=== PATIENT | female | born 1950 | race Caucasian/White ===

== ENCOUNTER 2016-08-12 07:00 | Day surgery (SDC) | payer MEDICAID ==
[~2016-08-12 07:00] MED LIST: Lactated Ringers 1,000 ML IV SCH
[2016-08-12] MEDS ORDERED: Midazolam 1 MG/ML 2 ML SDV ONE (08:30)
[2016-08-12] MEDS ORDERED: fentaNYL 100 MCG/2 ML SDV ONE (08:30)
[2016-08-12] MEDS ORDERED: Propofol 200 MG/20 ML SDV ONE (08:30)
[2016-08-12 10:16] VITALS: BP 130/83
--- NOTE | 2016-08-13 07:37 | OR ---
DATE OF PROCEDURE: 08/12/2016 PREOPERATIVE DIAGNOSIS: History of liver and breast cancer. POSTOPERATIVE DIAGNOSES: Diverticulosis, small colon polyp 55 cm from the anal verge, history of liver and breast cancer. PROCEDURE: Colonoscopy to the cecum with biopsy resection of small colon polyp , 55 cm from anal verge. ANESTHESIA: IV anesthesia with monitored anesthesia care. INDICATION: This 66-year-old white female was referred for a colonoscopy. She is not sure when her last colonoscopic exam was done. We see in 2011 that she was scheduled to have a colonoscopy in 2017. She has a history of breast and liver cancer. I counseled her for the procedure including risks and alternatives, and she gave her informed consent to proceed. DESCRIPTION OF PROCEDURE: The patient was placed in the left lateral decubitus position. IV anesthesia was administered by the Anesthesia Service. Time-out was held. A rectal exam was performed, which was unremarkable. The flexible video Olympus colonoscope was introduced through her anus, up her rectum, and out her colon all way to the cecum. En route, in the left and sigmoid colon areas, we saw very few scattered diverticula. There was no bleeding or inflammation associated with them. Once the cecum was reached, the scope was slowly withdrawn examining the mucosa throughout. No additional mucosal abnormalities were noted until we reached 55 cm from the anal verge. Here, a small polyp was seen which was removed with a single bite of the biopsy forceps. The scope was brought back further. In the rectum, it was retroflexed. The distal rectum appeared unremarkable. The scope was straightened and removed. She tolerated the procedure well. Kev Breaux MD /[id number] RADHA
== END 2016-08-12 10:35 | disposition home or self-care (01) ==
LOC: JP.SDS 07:00
PROVIDERS: ATTEND Surgery
DX: Z12.11 Encounter for screening for malignant neoplasm of colon (principal); D12.6 Benign neoplasm of colon, unspecified; K57.30 Diverticulosis of large intestine without perforation or abscess without bleeding; Z91.041 Radiographic dye allergy status; F17.210 Nicotine dependence, cigarettes, uncomplicated
CPT/HCPCS: 45380; J2250; J2704; J3010; J7120; 88305

== ENCOUNTER 2017-01-08 10:58 | Inpatient (IN) | payer MEDICAID ==
--- NOTE | 2017-01-08 13:26 | CR ---
Portable chest The patient is status post right thoracentesis. There is a moderate size pneumothorax on the right. T he pneumothorax is best visualized in the lower hemithorax. There is a small right effusion. The left lung is unremarkable. There is no shift of midline. Impression: 1. Status post thoracentesis complicated by a right pneumothorax. Healthcare provider notified at time of dictation.
[2017-01-08] MEDS ORDERED: Lactated Ringers 1,000 ML IV SCH ×2 (13:29→13:46)
[2017-01-08] MEDS ORDERED: Bupivacaine 0.5%/EPINEPHrine 1:200,000 50 ML MDV ONE (13:30)
[2017-01-08] MEDS ORDERED: Ondansetron 4 MG Tab.DIS PO PRN (13:40)
[2017-01-08] MEDS ORDERED: fentaNYL 100 MCG/2 ML SDV ONE (13:46)
[2017-01-08] MEDS ORDERED: Propofol 200 MG/20 ML SDV ONE (13:46)
[2017-01-08] MEDS ORDERED: Midazolam 1 MG/ML 2 ML SDV ONE (13:47)
--- NOTE | 2017-01-08 13:50 | PCM.HP ---
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 She underwent a right thoracentesis removing 1,700 ml's of pleural fluid. This resulted in a pneumothorax. She is admitted for chest tube placement and care. Onset of Symptoms: Reports: Today Right Upper Abdomen Pain Score (Numeric/FACES): 7 - Related Data Allergies/Adverse Reactions: Allergies Allergy/AdvReac Type Severity Reaction Status Date / Time Iodinated Contrast- Oral and Allergy Hives Verified 01/08/17 11:03 IV Dye [Iodinated Contrast Media - IV Dye] Home Medications: Home Meds Aspirin 81 mg PO DAILY 10/07/14 [History] Black Cohosh 40 mg PO DAILY 08/10/16 [History] Ibuprofen [Advil] 200 mg PO Q6H PRN 08/10/16 [History] Melatonin 3 mg PO BEDTIME 08/10/16 [History] Multivitamin with Minerals [Multiple Vitamin] 1 tab PO DAILY 08/10/16 [History] Naphazoline HCl/Glycerin [Redness Relief Eye Drops] 1 - 2 drop EYEBOTH DAILY 02/16 [History] [place]-3 Fatty Acids/Fish Oil [Fish Oil 1,200 mg Softgel] 1 each PO DAILY [History] diphenhydrAMINE [Benadryl] 50 mg PO ASDIRECTED 01/01/17 [History] Past Medical History HEENT History: Reports: Impaired Vision Gastrointestinal History: Reports: Chronic Diarrhea Genitourinary History: Reports: None [employer] History: Reports: Musculoskeletal History: Reports: Back Pain, Chronic, Osteoarthritis Neurological History: Reports: Concussion, Head Trauma Oncologic (Cancer) History: Reports: Breast, Liver - Infectious Disease History Infectious Disease History: Reports: Chicken Pox, Measles, Mumps - Past Surgical History Female Surgical History: Reports: Breast Biopsy, Tubal Ligation Neurological Surgical History: Reports: Lumbar Spine Oncologic Surgical History: Reports: Biopsy of Breast, Lumpectomy Social & Family History - Family History Family Medical History: Noncontributory - Tobacco Use Smoking Status *Q: Current Every Day Smoker Years of Tobacco use: 44 Packs/Tins Daily: 0.5 Used Tobacco, but Quit: No Second Hand Smoke Exposure: No - Caffeine Use Caffeine Use: Reports: Coffee - Alcohol Use Days Per Week of Alcohol Use: 3 Number of Drinks Per Day: 1 Total Drinks Per Week: 3 - Recreational Drug Use Recreational Drug Use: No H&P Review of Systems - Review of Systems: Review Of Systems: See Below HEENT: Reports: No Symptoms Pulmonary: Reports: Shortness of Breath Cardiovascular: Reports: No Symptoms Gastrointestinal: Reports: No Symptoms Genitourinary: Reports: No Symptoms Musculoskeletal: Reports: No Symptoms Skin: Reports: No Symptoms Psychiatric: Reports: No Symptoms Neurological: Reports: No Symptoms Hematologic/Lymphatic: Reports: No Symptoms Immunologic: Reports: No Symptoms Exam - Exam Exam: See Below - Vital Signs Vital Signs: Last Vital Signs Temp 97.3 F 01/08/17 11:16 Pulse 74 01/08/17 12:28 Resp 16 01/08/17 12:28 BP 122/68 01/08/17 12:28 Pulse Ox 98 01/08/17 12:28 Weight: 125 lb 1 oz - Exam General: Alert, Oriented, Cooperative Lungs: Clear to Auscultation, Normal Respiratory Effort, Decreased Breath Sounds Cardiovascular: Regular Rate, Regular Rhythm GI/Abdominal Exam: Normal Bowel Sounds, Soft, Non-Tender Back Exam: Normal Inspection, Full Range of Motion Extremities: Normal Inspection, Normal Range of Motion Skin: Warm, Dry, Intact Neuro Extensive - Mental Status: Alert, Oriented x3, Normal Mood/Affect, Normal Cognition, Memory Intact Psychiatric: Alert, Normal Affect, Normal Mood - Patient Data Imaging Impressions Last 24 hrs: Right pneumothorax. *Q Meaningful Use (ADM) - VTE *Q VTE Criteria *Q: - Stroke *Q Stroke Criteria *Q: - AMI *Q AMI Criteria *Q: - Problem List (1) Pneumothorax on right SNOMED Code(s): 962359291 ICD Code: J93.9 - PNEUMOTHORAX, UNSPECIFIED Status: Acute Current Visit: Yes Problem List Initiated/Reviewed/Updated: Yes Orders Last 24hrs: Active Orders 24 hr Category Date Time Status Patient Status [ADT] Routine ADT 01/08/17 13:40 Ordered Intake and Output [RC] QSHIFT Care 01/08/17 13:42 Ordered Notify Provider Vital Signs [RC] ASDIRECTED Care 01/08/17 13:42 Ordered Oxygen Therapy [RC] PRN Care 01/08/17 13:40 Ordered Pulse Oximetry [RC] CONTINUOUS Care 01/08/17 13:42 Ordered Up to Chair [RC] ASDIRECTED Care 01/08/17 13:40 Ordered VTE/DVT Education [RC] Per Unit Routine Care 01/08/17 13:40 Ordered Vital Signs [RC] Q4H Care 01/08/17 13:40 Ordered Nothing per Oral Now Diet [DIET] Diet 01/08/17 Lunch Ordered Chest 1V Frontal [CR] DAILY Exams 01/08/17 13:45 Ordered US Guidance Thoracentesis NC [US] Routine Exams 01/08/17 11:00 Taken Lactated Ringers [Ringers, Lactated] 1,000 ml Med 01/09/17 13:29 Active IV ASDIRECTED Ondansetron [Zofran ODT] Med 01/08/17 13:40 Ordered 4 mg PO Q6H PRN Sequential Compression Device [OM.PC] Per Unit Routine Oth 01/08/17 13:43 Ordered Resuscitation Status Routine Resus Stat 01/08/17 13:40 Ordered Medication Orders Lactated Ringer's (Ringers, Lactated) 1,000 mls @ 25 mls/hr IV ASDIRECTED LANI Assessment/Plan Comment:: Right pneumothorax. Admit for right chest tube placement and treatment.
--- NOTE | 2017-01-08 14:36 | CR ---
Portable chest Comparison: Earlier same day. There has been interval placement of right chest tube. There has been reexpansion of the right lung w ith only a small residual pneumothorax remaining. There is infiltrate seen in the right lung base. Th e left lung is stable. Impression: 1. Decreased pneumothorax following placement of right chest tube.
[2017-01-08] MEDS ORDERED: diphenhydrAMINE 25 MG Cap PO PRN (14:45)
[2017-01-08] MEDS: Acetaminophen/HYDROcodone 325-5 MG Tab PO PRN ×2 (16:37→21:00)
[2017-01-08] MEDS: Melatonin 3 MG Tab PO SCH (21:00)
[2017-01-08] MEDS: Docusate Sodium 100 MG Cap PO SCH (21:00)
--- NOTE | 2017-01-08 22:35 | OR ---
DATE OF PROCEDURE: 01/08/2017 PREOPERATIVE DIAGNOSIS: Right pneumothorax. POSTOPERATIVE DIAGNOSIS: Right pneumothorax. PROCEDURE: Placement of a 20-Malaysian right chest tube. SURGEON: Kev Breaux MD. ANESTHESIA: IV anesthesia with monitored anesthesia care. INDICATION: This 66-year-old white female has metastatic carcinoid tumor. She had a right pleural effusion and she was referred for thoracentesis on this. We removed 1700 mL of serous fluid. Followup CT scan and chest x-ray shows a right pneumothorax. I counseled her for placement of a right chest tube with the plan her being in the hospital for a few days including risks and alternatives, and she gave her informed consent to proceed. DESCRIPTION OF PROCEDURE: After adequate IV anesthesia was obtained with the patient having a wedge under her right flank, her right chest, axilla, and shoulder were prepped and draped in the usual sterile fashion. Lidocaine 1% with epinephrine in a 50: 50 mix with 0.5% Marcaine was infiltrated at the anterior axillary line at about the level of the areolar complex. A small skin incision was made parallel to the ribs. We then coursed up over the rib and entered the right chest. A 20-Malaysian straight chest tube was then placed. It was anchored in place with 0 Ethibond. Sterile dressings were applied. Follow up chest x-ray shows the pneumothorax have resolved. She does have an eventration on the right side. She tolerated the procedure well. Kev Breaux MD /[id number] MTDD
[2017-01-09] MEDS: Acetaminophen/HYDROcodone 325-5 MG Tab PO PRN ×2 (04:58→20:36)
--- NOTE | 2017-01-09 08:00 | PCM.SURGPN ---
- General Info Date of Service: 01/09/17 Date of Surgery/Procedure: 01/08/17 POD#: 1 Post-Op Diagnosis: Pneumothorax Functional Status: Reports: Pain Controlled, Tolerating Diet, Ambulating, Urinating - Review of Systems General: Reports: No Symptoms HEENT: Reports: No Symptoms Pulmonary: Reports: No Symptoms Cardiovascular: Reports: No Symptoms Gastrointestinal: Reports: No Symptoms Genitourinary: Reports: No Symptoms Musculoskeletal: Reports: No Symptoms Skin: Reports: No Symptoms Neurological: Reports: No Symptoms Psychiatric: Reports: No Symptoms - Patient Data Vitals - Most Recent: Last Vital Signs Temp 99.1 F 01/09/17 03:45 Pulse 76 01/09/17 03:45 Resp 18 01/09/17 03:45 BP 88/53 L 01/09/17 03:45 Pulse Ox 95 01/09/17 07:00 Weight - Most Recent: 125 lb 1 oz I&O - Last 24 Hours: Intake & Output 01/08/17 01/09/17 01/09/17 22:59 06:59 14:59 Intake Total 1267 641 Output Total 500 1030 Balance 767 -389 Med Orders - Current: Current Medications Hydrocodone Bitart/Acetaminophen ([place] 325-5 Mg) 1 - 2 tab PO Q4H PRN PRN Reason: Pain Last Admin: 01/09/17 04:58 Dose: 1 tab Diphenhydramine HCl (Benadryl) 50 mg PO ASDIRECTED PRN PRN Reason: GIVE PRIOR TO CT SCANS Docusate Sodium (Colace) 100 mg PO BID LANI Last Admin: 01/08/17 21:00 Dose: 100 mg Fish Oil (Fish Oil) 1 gm PO DAILY [facility] Lactated Ringer's (Ringers, Lactated) 1,000 mls @ 25 mls/hr IV ASDIRECTED LANI Last Admin: 01/08/17 13:30 Dose: 25 mls/hr Melatonin (Melatonin) 3 mg PO BEDTIME [facility]I Last Admin: 01/08/17 21:00 Dose: 3 mg Multivitamins/Minerals (Thera M Plus) 1 tab PO DAILY [facility] Black Cohosh 40 Mg ( (Ptom)) 0 mg PO DAILY [facility] Redness Relief Eye (Drops (Ptom)) 1 - 2 drop EYEBOTH DAILY [facility] Ondansetron HCl (Zofran Odt) 4 mg PO Q6H PRN PRN Reason: Nausea able to take PO Discontinued Medications Bupivacaine HCl/Epinephrine Bitart (Marcaine 0.5%/Epinephrine 1:200,000) Confirm Administered Dose 50 ml .ROUTE .STK-MED ONE Stop: 01/08/17 13:31 Last Admin: 01/08/17 14:10 Dose: 20 ml Fentanyl (Sublimaze) Confirm Administered Dose 100 mcg .ROUTE .STK-MED ONE Stop: 01/08/17 13:47 Midazolam HCl (Versed 1 Mg/Ml) Confirm Administered Dose 2 mg .ROUTE .STK-MED ONE Stop: 01/08/17 13:48 Propofol (Diprivan 20 Ml) Confirm Administered Dose 200 mg .ROUTE .STK-MED ONE Stop: 01/08/17 13:47 - Exam Wound/Incisions: Drainage (Around chest tube. ) General: Alert, Oriented, Cooperative, No Acute Distress Lungs: Clear to Auscultation, Normal Respiratory Effort Cardiovascular: Regular Rate, Regular Rhythm GI/Abdominal Exam: Normal Bowel Sounds, Soft, Non-Tender Extremities: Normal Inspection, Normal Range of Motion Skin: Warm, Dry, Intact Neurological: No New Focal Deficit Psy/Mental Status: Alert, Normal Affect, Normal Mood - Problem List & Annotations (1) Pneumothorax on right SNOMED Code(s): 455925631 Code(s): J93.9 - PNEUMOTHORAX, UNSPECIFIED Status: Acute Current Visit: Yes - Problem List Review Problem List Initiated/Reviewed/Updated: Yes - My Orders Last 24 Hours: Active Orders 24 hr Category Date Time Status Patient Status [ADT] Routine ADT 01/08/17 13:40 Active Chest Tube Management [RC] ASDIRECTED Care 01/08/17 14:32 Active Intake and Output [RC] QSHIFT Care 01/08/17 13:42 Active Notify Provider Vital Signs [RC] ASDIRECTED Care 01/08/17 13:42 Active Oxygen Therapy [RC] PRN Care 01/08/17 13:40 Active Pulse Oximetry [RC] CONTINUOUS Care 01/08/17 13:42 Active Up to Chair [RC] ASDIRECTED Care 01/08/17 13:40 Active Vital Signs [RC] Q4H Care 01/08/17 13:40 Active Regular Diet [DIET] Diet 01/08/17 Dinner Active Chest 1V Frontal [CR] Routine Exams 01/09/17 05:00 Taken Chest 1V Frontal [CR] Routine Exams 01/10/17 05:00 Ordered Chest 1V Frontal [CR] Routine Exams 01/10/17 05:00 Stop Req Chest 1V Frontal [CR] Routine Exams 01/11/17 05:00 Ordered US Guidance Thoracentesis NC [US] Routine Exams 01/08/17 11:00 Taken Acetaminophen/HYDROcodone [[place] 325-5 MG] Med 01/08/17 14:29 Active 1 - 2 tab PO Q4H PRN Black Cohosh [Black Cohosh] Med 01/09/17 09:00 Active 0 mg PO DAILY Docusate Sodium [Colace] Med 01/08/17 21:00 Active 100 mg PO BID Fish Oil/[place]-3 Fatty Acids [Fish Oil] Med 01/09/17 09:00 Active 1 gm PO DAILY Lactated Ringers [Ringers, Lactated] 1,000 ml Med 01/08/17 13:29 Active IV ASDIRECTED Melatonin Med 01/08/17 21:00 Active 3 mg PO BEDTIME Multivitamins w-Iron/Ca/FA/Min [Thera M Plus] Med 01/09/17 09:00 Active 1 tab PO DAILY Naphazoline HCl/Glycerin [Redness Relief Eye Drops] Med 01/09/17 09:00 Active 1 - 2 drop EYEBOTH DAILY Ondansetron [Zofran ODT] Med 01/08/17 13:40 Active 4 mg PO Q6H PRN diphenhydrAMINE [Benadryl] Med 01/08/17 14:45 Active 50 mg PO ASDIRECTED PRN Convert IV to Saline Lock [OM.PC] Routine Oth 01/09/17 07:57 Ordered Sequential Compression Device [OM.PC] Per Unit Routine Oth 01/08/17 13:43 Ordered Resuscitation Status Routine Resus Stat 01/08/17 13:40 Ordered Medication Orders Hydrocodone Bitart/Acetaminophen ([place] 325-5 Mg) 1 - 2 tab PO Q4H PRN PRN Reason: Pain Last Admin: 01/09/17 04:58 Dose: 1 tab Admin: 01/08/17 21:00 Dose: 1 tab Admin: 01/08/17 16:37 Dose: 1 tab Diphenhydramine HCl (Benadryl) 50 mg PO ASDIRECTED PRN PRN Reason: GIVE PRIOR TO CT SCANS Docusate Sodium (Colace) 100 mg PO BID LANI Last Admin: 01/08/17 21:00 Dose: 100 mg Fish Oil (Fish Oil) 1 gm PO DAILY [facility] Lactated Ringer's (Ringers, Lactated) 1,000 mls @ 25 mls/hr IV ASDIRECTED LANI Last Admin: 01/08/17 13:30 Dose: 25 mls/hr Melatonin (Melatonin) 3 mg PO BEDTIME LANI Last Admin: 01/08/17 21:00 Dose: 3 mg Multivitamins/Minerals (Thera M Plus) 1 tab PO DAILY [facility] Black Cohosh 40 Mg ( (Ptom)) 0 mg PO DAILY [facility] Redness Relief Eye (Drops (Ptom)) 1 - 2 drop EYEBOTH DAILY [facility] Ondansetron HCl (Zofran Odt) 4 mg PO Q6H PRN PRN Reason: Nausea able to take PO - Assessment Assessment (Free Text/Narrative):: Chest X-ray OK. - Plan Plan (Free Text/Narrative):: Water seal. Saline lock IV.
[2017-01-09] MEDS: Fish Oil/Omega-3 Fatty Acids 1 Gm Cap PO SCH (08:01)
[2017-01-09] MEDS: Docusate Sodium 100 MG Cap PO SCH ×2 (08:01→20:36)
[2017-01-09] MEDS: Multivitamins with Iron/Calcium/Folic Acid/Minerals Tab PO SCH (08:01)
[2017-01-09] MEDS: [UNRECOGNIZED DRUG - OTHER] EYEBOTH SCH (08:02)
[2017-01-09] MEDS: BLACK COHOSH 40 MG PO SCH (08:02)
[2017-01-09] MEDS: Melatonin 3 MG Tab PO SCH (20:36)
[2017-01-10] MEDS: Multivitamins with Iron/Calcium/Folic Acid/Minerals Tab PO SCH (08:37)
[2017-01-10] MEDS: Docusate Sodium 100 MG Cap PO SCH ×2 (08:37→20:22)
[2017-01-10] MEDS: Fish Oil/Omega-3 Fatty Acids 1 Gm Cap PO SCH (08:37)
[2017-01-10] MEDS: [UNRECOGNIZED DRUG - OTHER] EYEBOTH SCH (08:37)
[2017-01-10] MEDS: BLACK COHOSH 40 MG PO SCH (08:37)
--- NOTE | 2017-01-10 09:41 | PCM.SURGPN ---
- General Info Date of Service: 01/10/17 Date of Surgery/Procedure: 01/08/17 POD#: 2 Functional Status: Reports: Pain Controlled, Tolerating Diet, Ambulating, Urinating - Review of Systems General: Reports: No Symptoms HEENT: Reports: No Symptoms Pulmonary: Reports: Other (Some fluid drainage around her chest tube. ) Cardiovascular: Reports: No Symptoms Gastrointestinal: Reports: No Symptoms Genitourinary: Reports: No Symptoms Musculoskeletal: Reports: No Symptoms Skin: Reports: No Symptoms Neurological: Reports: No Symptoms Psychiatric: Reports: No Symptoms - Patient Data Vitals - Most Recent: Last Vital Signs Temp 98.9 F 01/10/17 07:31 Pulse 84 01/10/17 07:31 Resp 12 01/10/17 07:31 BP 112/49 L 01/10/17 07:31 Pulse Ox 94 L 01/10/17 07:31 Weight - Most Recent: 125 lb 1 oz I&O - Last 24 Hours: Intake & Output 01/09/17 01/10/17 01/10/17 22:59 06:59 14:59 Intake Total 600 480 480 Output Total 70 Balance 600 410 480 Med Orders - Current: Current Medications Hydrocodone Bitart/Acetaminophen ([place] 325-5 Mg) 1 - 2 tab PO Q4H PRN PRN Reason: Pain Last Admin: 01/09/17 20:36 Dose: 1 tab Diphenhydramine HCl (Benadryl) 50 mg PO ASDIRECTED PRN PRN Reason: GIVE PRIOR TO CT SCANS Docusate Sodium (Colace) 100 mg PO BID [facility] Last Admin: 01/10/17 08:37 Dose: 100 mg Fish Oil (Fish Oil) 1 gm PO DAILY [facility] Last Admin: 01/10/17 08:37 Dose: 1 gm Lactated Ringer's (Ringers, Lactated) 1,000 mls @ 25 mls/hr IV ASDIRECTED LANI Last Admin: 01/08/17 13:30 Dose: 25 mls/hr Melatonin (Melatonin) 3 mg PO BEDTIME [facility] Last Admin: 01/09/17 20:36 Dose: 3 mg Multivitamins/Minerals (Thera M Plus) 1 tab PO DAILY [facility] Last Admin: 01/10/17 08:37 Dose: 1 tab Black Cohosh 40 Mg ( (Ptom)) 0 mg PO DAILY [facility] Last Admin: 01/10/17 08:37 Dose: Not Given Redness Relief Eye (Drops (Ptom)) 1 - 2 drop EYEBOTH DAILY [facility] Last Admin: 01/10/17 08:37 Dose: 1 drop Ondansetron HCl (Zofran Odt) 4 mg PO Q6H PRN PRN Reason: Nausea able to take PO Discontinued Medications Bupivacaine HCl/Epinephrine Bitart (Marcaine 0.5%/Epinephrine 1:200,000) Confirm Administered Dose 50 ml .ROUTE .STK-MED ONE Stop: 01/08/17 13:31 Last Admin: 01/08/17 14:10 Dose: 20 ml Fentanyl (Sublimaze) Confirm Administered Dose 100 mcg .ROUTE .STK-MED ONE Stop: 01/08/17 13:47 Midazolam HCl (Versed 1 Mg/Ml) Confirm Administered Dose 2 mg .ROUTE .STK-MED ONE Stop: 01/08/17 13:48 Propofol (Diprivan 20 Ml) Confirm Administered Dose 200 mg .ROUTE .STK-MED ONE Stop: 01/08/17 13:47 - Exam Wound/Incisions: Drainage Quality Assessment: DVT Prophylaxis General: Alert, Oriented, Cooperative, No Acute Distress Lungs: Clear to Auscultation, Normal Respiratory Effort Cardiovascular: Regular Rate, Regular Rhythm GI/Abdominal Exam: Normal Bowel Sounds, Soft, Non-Tender, No Organomegaly, No Distention Extremities: Normal Inspection, Normal Range of Motion, Non-Tender Skin: Warm, Dry, Intact Neurological: No New Focal Deficit Psy/Mental Status: Alert, Normal Affect, Normal Mood - Problem List & Annotations (1) Pneumothorax on right SNOMED Code(s): 947424482 Code(s): J93.9 - PNEUMOTHORAX, UNSPECIFIED Status: Acute Current Visit: Yes - Problem List Review Problem List Initiated/Reviewed/Updated: Yes - My Orders Last 24 Hours: Active Orders 24 hr Category Date Time Status Chest 1V Frontal [CR] Routine Exams 01/10/17 05:00 Ordered Chest 1V Frontal [CR] Routine Exams 01/11/17 05:00 Ordered Black Cohosh [Black Cohosh] Med 01/09/17 09:00 Active 0 mg PO DAILY Fish Oil/[place]-3 Fatty Acids [Fish Oil] Med 01/09/17 09:00 Active 1 gm PO DAILY Multivitamins w-Iron/Ca/FA/Min [Thera M Plus] Med 01/09/17 09:00 Active 1 tab PO DAILY Naphazoline HCl/Glycerin [Redness Relief Eye Drops] Med 01/09/17 09:00 Active 1 - 2 drop EYEBOTH DAILY Medication Orders Hydrocodone Bitart/Acetaminophen ([place] 325-5 Mg) 1 - 2 tab PO Q4H PRN PRN Reason: Pain Last Admin: 01/09/17 20:36 Dose: 1 tab Admin: 01/09/17 04:58 Dose: 1 tab Admin: 01/08/17 21:00 Dose: 1 tab Admin: 01/08/17 16:37 Dose: 1 tab Diphenhydramine HCl (Benadryl) 50 mg PO ASDIRECTED PRN PRN Reason: GIVE PRIOR TO CT SCANS Docusate Sodium (Colace) 100 mg PO BID [facility] Last Admin: 01/10/17 08:37 Dose: 100 mg Admin: 01/09/17 20:36 Dose: 100 mg Admin: 01/09/17 08:01 Dose: 100 mg Admin: 01/08/17 21:00 Dose: 100 mg Fish Oil (Fish Oil) 1 gm PO DAILY [facility] Last Admin: 01/10/17 08:37 Dose: 1 gm Admin: 01/09/17 08:01 Dose: 1 gm Lactated Ringer's (Ringers, Lactated) 1,000 mls @ 25 mls/hr IV ASDIRECTED [facility] Last Admin: 01/08/17 13:30 Dose: 25 mls/hr Melatonin (Melatonin) 3 mg PO BEDTIME [facility] Last Admin: 01/09/17 20:36 Dose: 3 mg Admin: 01/08/17 21:00 Dose: 3 mg Multivitamins/Minerals (Thera M Plus) 1 tab PO DAILY [facility] Last Admin: 01/10/17 08:37 Dose: 1 tab Admin: 01/09/17 08:01 Dose: 1 tab Black Cohosh 40 Mg ( (Ptom)) 0 mg PO DAILY [facility] Last Admin: 01/10/17 08:37 Dose: Admin: 01/09/17 08:02 Dose: Redness Relief Eye (Drops (Ptom)) 1 - 2 drop EYEBOTH DAILY [facility] Last Admin: 01/10/17 08:37 Dose: 1 drop Admin: 01/09/17 08:02 Dose: Ondansetron HCl (Zofran Odt) 4 mg PO Q6H PRN PRN Reason: Nausea able to take PO - Assessment Assessment (Free Text/Narrative):: CXR with fluid in right lower quadrant. Possible still some air. She appears well. - Plan Plan (Free Text/Narrative):: No change.
[2017-01-10] MEDS: Melatonin 3 MG Tab PO SCH (20:21)
--- NOTE | 2017-01-11 07:37 | OR ---
DATE OF PROCEDURE: 01/08/2017 PREOPERATIVE DIAGNOSIS: Right pleural effusion. POSTOPERATIVE DIAGNOSIS: Right pleural effusion. PROCEDURE: Right thoracentesis removing 1700 mL of serous fluid. SURGEON: Kev Breaux MD. ANESTHESIA: Lidocaine 1% plain, local. INDICATION: This is a 66-year-old white female has a right pleural effusion. She is referred by Oncology for a right thoracentesis. She says she has had this procedure performed on her in the past. I counseled her for a right thoracentesis, and she gave her informed consent to proceed. PROCEDURE IN DETAIL: The chief nurse marked a good place for the thoracentesis with the patient sitting upright, leaning over a bedside stand. The patient's back was prepped and draped in usual sterile fashion. Time-out was held. Lidocaine 1% plain was infiltrated at the site marked by the chief nurse. The needle coursed over the rib. We aspirated and went into the chest obtaining serous fluid, indicating this is indeed a good place for the thoracentesis. A small skin incision was then made at this point, and the needle with catheter manufactured by [employer] was introduced into the right side of her chest. Once we obtained fluid, the catheter was advanced, and the needle was removed. We then used the suction bottle technique to remove 1700 mL of serous fluid. When no more fluid could be obtained, the catheter was removed. Chest x-ray shows the lung collazo to be clear and no evidence of pneumothorax. Kev Breaux MD /[id number] [facility]
--- NOTE | 2017-01-11 08:50 | CR ---
Heart size stable. Right-sided chest tube. No definitive pneumothorax on the right. Haziness right basil ng base similar.
--- NOTE | 2017-01-11 08:50 | CR ---
Right-sided chest tube. No definitive pneumothorax. Improved aeration right lung base. Left lung stab le.
--- NOTE | 2017-01-11 08:51 | CR ---
No pneumothorax the right. Continued improved aeration right lung base. Left lung base stable.
[2017-01-11] MEDS: BLACK COHOSH 40 MG PO SCH (09:20)
[2017-01-11] MEDS: Docusate Sodium 100 MG Cap PO SCH ×2 (09:21→20:44)
[2017-01-11] MEDS: Fish Oil/Omega-3 Fatty Acids 1 Gm Cap PO SCH (09:21)
[2017-01-11] MEDS: Multivitamins with Iron/Calcium/Folic Acid/Minerals Tab PO SCH (09:21)
[2017-01-11] MEDS: [UNRECOGNIZED DRUG - OTHER] EYEBOTH SCH (09:25)
[2017-01-11] MEDS: Acetaminophen/HYDROcodone 325-5 MG Tab PO PRN (12:23)
--- NOTE | 2017-01-11 20:26 | PCM.SURGPN ---
- General Info Date of Service: 01/11/17 Date of Surgery/Procedure: 01/08/17 POD#: 3 Post-Op Diagnosis: Pneumothorax, right. Metastatic carcinoid. Admission Diagnosis/Problem: Pneumothorax on right Functional Status: Reports: Pain Controlled, Tolerating Diet, Ambulating, Urinating - Review of Systems General: Reports: No Symptoms HEENT: Reports: No Symptoms Pulmonary: Reports: No Symptoms Cardiovascular: Reports: No Symptoms Gastrointestinal: Reports: No Symptoms Genitourinary: Reports: No Symptoms Musculoskeletal: Reports: No Symptoms Skin: Reports: No Symptoms Neurological: Reports: No Symptoms Psychiatric: Reports: No Symptoms - Patient Data Vitals - Most Recent: Last Vital Signs Temp 97.3 F 01/11/17 19:00 Pulse 73 01/11/17 19:00 Resp 20 01/11/17 19:00 BP 100/58 L 01/11/17 19:00 Pulse Ox 93 L 01/11/17 20:10 Weight - Most Recent: 126 lb 6.397 oz I&O - Last 24 Hours: Intake & Output 01/11/17 01/11/17 01/11/17 06:59 14:59 22:59 Intake Total 600 480 Output Total 1090 300 200 Balance -490 180 -200 Med Orders - Current: Current Medications Hydrocodone Bitart/Acetaminophen ([place] 325-5 Mg) 1 - 2 tab PO Q4H PRN PRN Reason: Pain Last Admin: 01/11/17 12:23 Dose: 1 tab Diphenhydramine HCl (Benadryl) 50 mg PO ASDIRECTED PRN PRN Reason: GIVE PRIOR TO CT SCANS Docusate Sodium (Colace) 100 mg PO BID [facility] Last Admin: 01/11/17 09:21 Dose: 100 mg Fish Oil (Fish Oil) 1 gm PO DAILY [facility] Last Admin: 01/11/17 09:21 Dose: 1 gm Lactated Ringer's (Ringers, Lactated) 1,000 mls @ 25 mls/hr IV ASDIRECTED [facility] Last Admin: 01/08/17 13:30 Dose: 25 mls/hr Melatonin (Melatonin) 3 mg PO BEDTIME [facility] Last Admin: 01/10/17 20:21 Dose: 3 mg Multivitamins/Minerals (Thera M Plus) 1 tab PO DAILY [facility] Last Admin: 01/11/17 09:21 Dose: 1 tab Black Cohosh 40 Mg ( (Ptom)) 0 mg PO DAILY [facility] Last Admin: 01/11/17 09:20 Dose: Not Given Redness Relief Eye (Drops (Ptom)) 1 - 2 drop EYEBOTH DAILY [facility] Last Admin: 01/11/17 09:25 Dose: 1 drop Ondansetron HCl (Zofran Odt) 4 mg PO Q6H PRN PRN Reason: Nausea able to take PO Discontinued Medications Bupivacaine HCl/Epinephrine Bitart (Marcaine 0.5%/Epinephrine 1:200,000) Confirm Administered Dose 50 ml .ROUTE .STK-MED ONE Stop: 01/08/17 13:31 Last Admin: 01/08/17 14:10 Dose: 20 ml Fentanyl (Sublimaze) Confirm Administered Dose 100 mcg .ROUTE .STK-MED ONE Stop: 01/08/17 13:47 Midazolam HCl (Versed 1 Mg/Ml) Confirm Administered Dose 2 mg .ROUTE .STK-MED ONE Stop: 01/08/17 13:48 Propofol (Diprivan 20 Ml) Confirm Administered Dose 200 mg .ROUTE .STK-MED ONE Stop: 01/08/17 13:47 - Exam Wound/Incisions: Drainage General: Alert, Oriented, Cooperative, No Acute Distress Lungs: Clear to Auscultation, Normal Respiratory Effort Cardiovascular: Regular Rate, Regular Rhythm GI/Abdominal Exam: Normal Bowel Sounds, Soft, Non-Tender, No Organomegaly, No Distention Extremities: Normal Inspection, Normal Range of Motion Skin: Warm, Dry Neurological: No New Focal Deficit Psy/Mental Status: Alert, Normal Affect, Normal Mood - Problem List & Annotations (1) Pneumothorax on right SNOMED Code(s): 148291054 Code(s): J93.9 - PNEUMOTHORAX, UNSPECIFIED Status: Acute Current Visit: Yes - Problem List Review Problem List Initiated/Reviewed/Updated: Yes - My Orders Last 24 Hours: Medication Orders Hydrocodone Bitart/Acetaminophen ([place] 325-5 Mg) 1 - 2 tab PO Q4H PRN PRN Reason: Pain Last Admin: 01/11/17 12:23 Dose: 1 tab Admin: 01/09/17 20:36 Dose: 1 tab Admin: 01/09/17 04:58 Dose: 1 tab Admin: 01/08/17 21:00 Dose: 1 tab Admin: 01/08/17 16:37 Dose: 1 tab Diphenhydramine HCl (Benadryl) 50 mg PO ASDIRECTED PRN PRN Reason: GIVE PRIOR TO CT SCANS Docusate Sodium (Colace) 100 mg PO BID [facility] Last Admin: 01/11/17 09:21 Dose: 100 mg Admin: 01/10/17 20:22 Dose: 100 mg Admin: 01/10/17 08:37 Dose: 100 mg Admin: 01/09/17 20:36 Dose: 100 mg Admin: 01/09/17 08:01 Dose: 100 mg Admin: 01/08/17 21:00 Dose: 100 mg Fish Oil (Fish Oil) 1 gm PO DAILY [facility] Last Admin: 01/11/17 09:21 Dose: 1 gm Admin: 01/10/17 08:37 Dose: 1 gm Admin: 01/09/17 08:01 Dose: 1 gm Lactated Ringer's (Ringers, Lactated) 1,000 mls @ 25 mls/hr IV ASDIRECTED [facility] Last Admin: 01/08/17 13:30 Dose: 25 mls/hr Melatonin (Melatonin) 3 mg PO BEDTIME [facility] Last Admin: 01/10/17 20:21 Dose: 3 mg Admin: 01/09/17 20:36 Dose: 3 mg Admin: 01/08/17 21:00 Dose: 3 mg Multivitamins/Minerals (Thera M Plus) 1 tab PO DAILY [facility] Last Admin: 01/11/17 09:21 Dose: 1 tab Admin: 01/10/17 08:37 Dose: 1 tab Admin: 01/09/17 08:01 Dose: 1 tab Black Cohosh 40 Mg ( (Ptom)) 0 mg PO DAILY [facility] Last Admin: 01/11/17 09:20 Dose: Admin: 01/10/17 08:37 Dose: Admin: 01/09/17 08:02 Dose: Redness Relief Eye (Drops (Ptom)) 1 - 2 drop EYEBOTH DAILY [facility] Last Admin: 01/11/17 09:25 Dose: 1 drop Admin: 01/10/17 08:37 Dose: 1 drop Admin: 01/09/17 08:02 Dose: Ondansetron HCl (Zofran Odt) 4 mg PO Q6H PRN PRN Reason: Nausea able to take PO - Assessment Assessment (Free Text/Narrative):: Improving. Has fluid in right chest base. - Plan Plan (Free Text/Narrative):: Plan to remove her chest tube in the morning.
[2017-01-11] MEDS: Melatonin 3 MG Tab PO SCH (20:45)
[2017-01-12] MEDS ORDERED: Bacitracin Oint 1 GM U/D Packet ONE (06:23)
[2017-01-12] MEDS ORDERED: Bacitracin Oint 1 GM U/D Packet TOP ONE (06:27)
[2017-01-12] MEDS ORDERED: Bacitracin Oint 28.35 GM Tube TOP SCH (06:30)
--- NOTE | 2017-01-12 06:40 | PCM.SURGPN ---
- General Info Date of Service: 01/12/17 Date of Surgery/Procedure: 01/08/17 POD#: 4 Post-Op Diagnosis: Pneumothorax Functional Status: Reports: Pain Controlled, Tolerating Diet, Ambulating, Urinating, Incentive Spirometry - Review of Systems General: Reports: No Symptoms HEENT: Reports: No Symptoms Pulmonary: Reports: No Symptoms Cardiovascular: Reports: No Symptoms Gastrointestinal: Reports: No Symptoms Genitourinary: Reports: No Symptoms Musculoskeletal: Reports: No Symptoms Skin: Reports: No Symptoms Neurological: Reports: No Symptoms Psychiatric: Reports: No Symptoms - Patient Data Vitals - Most Recent: Last Vital Signs Temp 98.4 F 01/12/17 03:00 Pulse 80 01/12/17 03:00 Resp 20 01/12/17 03:00 BP 120/70 01/12/17 03:00 Pulse Ox 91 L 01/12/17 03:00 Weight - Most Recent: 126 lb 6.397 oz I&O - Last 24 Hours: Intake & Output 01/11/17 01/11/17 01/12/17 14:59 22:59 06:59 Intake Total 480 500 Output Total 300 500 20 Balance 180 -500 480 Med Orders - Current: Current Medications Hydrocodone Bitart/Acetaminophen ([place] 325-5 Mg) 1 - 2 tab PO Q4H PRN PRN Reason: Pain Last Admin: 01/11/17 12:23 Dose: 1 tab Diphenhydramine HCl (Benadryl) 50 mg PO ASDIRECTED PRN PRN Reason: GIVE PRIOR TO CT SCANS Docusate Sodium (Colace) 100 mg PO BID [facility] Last Admin: 01/11/17 20:44 Dose: 100 mg Fish Oil (Fish Oil) 1 gm PO DAILY [facility] Last Admin: 01/11/17 09:21 Dose: 1 gm Lactated Ringer's (Ringers, Lactated) 1,000 mls @ 25 mls/hr IV ASDIRECTED [facility] Last Admin: 01/08/17 13:30 Dose: 25 mls/hr Melatonin (Melatonin) 3 mg PO BEDTIME [facility] Last Admin: 01/11/17 20:45 Dose: 3 mg Multivitamins/Minerals (Thera M Plus) 1 tab PO DAILY [facility] Last Admin: 01/11/17 09:21 Dose: 1 tab Black Cohosh 40 Mg ( (Ptom)) 0 mg PO DAILY [facility] Last Admin: 01/11/17 09:20 Dose: Not Given Redness Relief Eye (Drops (Ptom)) 1 - 2 drop EYEBOTH DAILY [facility] Last Admin: 01/11/17 09:25 Dose: 1 drop Ondansetron HCl (Zofran Odt) 4 mg PO Q6H PRN PRN Reason: Nausea able to take PO Discontinued Medications Bacitracin (Bacitracin Oint 1 Gm) Confirm Administered Dose 3 dose .ROUTE .STK- MED ONE Stop: 01/12/17 06:24 Last Admin: 01/12/17 06:28 Dose: 3 dose Bacitracin (Bacitracin Oint 1 Gm) 3 dose TOP ONETIME ONE Stop: 01/12/17 06:28 Last Admin: 01/12/17 06:38 Dose: Not Given Bupivacaine HCl/Epinephrine Bitart (Marcaine 0.5%/Epinephrine 1:200,000) Confirm Administered Dose 50 ml .ROUTE .STK-MED ONE Stop: 01/08/17 13:31 Last Admin: 01/08/17 14:10 Dose: 20 ml Fentanyl (Sublimaze) Confirm Administered Dose 100 mcg .ROUTE .STK-MED ONE Stop: 01/08/17 13:47 Midazolam HCl (Versed 1 Mg/Ml) Confirm Administered Dose 2 mg .ROUTE .STK-MED ONE Stop: 01/08/17 13:48 Propofol (Diprivan 20 Ml) Confirm Administered Dose 200 mg .ROUTE .STK-MED ONE Stop: 01/08/17 13:47 - Exam Wound/Incisions: Healing Well, Drainage General: Alert, Oriented, Cooperative, No Acute Distress Lungs: Clear to Auscultation, Normal Respiratory Effort Cardiovascular: Regular Rate, Regular Rhythm GI/Abdominal Exam: Normal Bowel Sounds, Soft, Non-Tender Extremities: Normal Inspection Skin: Warm, Dry, Intact Neurological: No New Focal Deficit Psy/Mental Status: Alert, Normal Affect, Normal Mood - Problem List & Annotations (1) Pneumothorax on right SNOMED Code(s): 260106488 Code(s): J93.9 - PNEUMOTHORAX, UNSPECIFIED Status: Acute Current Visit: Yes - Problem List Review Problem List Initiated/Reviewed/Updated: Yes - My Orders Last 24 Hours: Active Orders 24 hr Category Date Time Status Chest 1V Frontal [CR] DAILY Exams 01/12/17 05:57 Taken Chest 1V Frontal [CR] Routine Exams 01/12/17 06:37 Ordered Medication Orders Hydrocodone Bitart/Acetaminophen ([place] 325-5 Mg) 1 - 2 tab PO Q4H PRN PRN Reason: Pain Last Admin: 01/11/17 12:23 Dose: 1 tab Admin: 01/09/17 20:36 Dose: 1 tab Admin: 01/09/17 04:58 Dose: 1 tab Admin: 01/08/17 21:00 Dose: 1 tab Admin: 01/08/17 16:37 Dose: 1 tab Diphenhydramine HCl (Benadryl) 50 mg PO ASDIRECTED PRN PRN Reason: GIVE PRIOR TO CT SCANS Docusate Sodium (Colace) 100 mg PO BID [facility] Last Admin: 01/11/17 20:44 Dose: 100 mg Admin: 01/11/17 09:21 Dose: 100 mg Admin: 01/10/17 20:22 Dose: 100 mg Admin: 01/10/17 08:37 Dose: 100 mg Admin: 01/09/17 20:36 Dose: 100 mg Admin: 01/09/17 08:01 Dose: 100 mg Admin: 01/08/17 21:00 Dose: 100 mg Fish Oil (Fish Oil) 1 gm PO DAILY [facility] Last Admin: 01/11/17 09:21 Dose: 1 gm Admin: 01/10/17 08:37 Dose: 1 gm Admin: 01/09/17 08:01 Dose: 1 gm Lactated Ringer's (Ringers, Lactated) 1,000 mls @ 25 mls/hr IV ASDIRECTED [facility] Last Admin: 01/08/17 13:30 Dose: 25 mls/hr Melatonin (Melatonin) 3 mg PO BEDTIME [facility] Last Admin: 01/11/17 20:45 Dose: 3 mg Admin: 01/10/17 20:21 Dose: 3 mg Admin: 01/09/17 20:36 Dose: 3 mg Admin: 01/08/17 21:00 Dose: 3 mg Multivitamins/Minerals (Thera M Plus) 1 tab PO DAILY [facility] Last Admin: 01/11/17 09:21 Dose: 1 tab Admin: 01/10/17 08:37 Dose: 1 tab Admin: 01/09/17 08:01 Dose: 1 tab Black Cohosh 40 Mg ( (Ptom)) 0 mg PO DAILY [facility] Last Admin: 01/11/17 09:20 Dose: Admin: 01/10/17 08:37 Dose: Admin: 01/09/17 08:02 Dose: Redness Relief Eye (Drops (Ptom)) 1 - 2 drop EYEBOTH DAILY [facility] Last Admin: 01/11/17 09:25 Dose: 1 drop Admin: 01/10/17 08:37 Dose: 1 drop Admin: 01/09/17 08:02 Dose: Ondansetron HCl (Zofran Odt) 4 mg PO Q6H PRN PRN Reason: Nausea able to take PO - Assessment Assessment (Free Text/Narrative):: CXR OK - Plan Plan (Free Text/Narrative):: D/C chest tube--done. Follow up CXR.
[2017-01-12] MEDS: Fish Oil/Omega-3 Fatty Acids 1 Gm Cap PO SCH (09:06)
[2017-01-12] MEDS: Docusate Sodium 100 MG Cap PO SCH ×2 (09:06→20:10)
[2017-01-12] MEDS: Multivitamins with Iron/Calcium/Folic Acid/Minerals Tab PO SCH (09:07)
[2017-01-12] MEDS: [UNRECOGNIZED DRUG - OTHER] EYEBOTH SCH (09:07)
[2017-01-12] MEDS: BLACK COHOSH 40 MG PO SCH (09:07)
--- NOTE | 2017-01-12 10:05 | CR ---
Heart size within normal limits. Chest tube on the right. No definitive pneumothorax on the right. Mi ld haziness right lung base can indicate pleural fluid infiltrate or atelectasis.
--- NOTE | 2017-01-12 10:06 | CR ---
Heart size stable. Left lung is clear. Removal of the right-sided chest tube. There is a tiny right a pical pneumothorax evident only measuring a few millimeters in thickness. Similar findings in the rig ht costophrenic angle with trace pleural fluid and some haziness.
[2017-01-12] MEDS: Melatonin 3 MG Tab PO SCH (20:10)
--- NOTE | 2017-01-13 08:24 | CR ---
Heart size stable. Development of a small left pleural effusion. Tiny 1-2 mm pneumothorax the right i s suggested. Stable to smaller compared to prior. Haziness right costophrenic angle. Small pleural ef fusion with atelectasis or infiltrate.
[2017-01-13] MEDS: Fish Oil/Omega-3 Fatty Acids 1 Gm Cap PO SCH (08:28)
[2017-01-13] MEDS: Docusate Sodium 100 MG Cap PO SCH (08:28)
[2017-01-13] MEDS: BLACK COHOSH 40 MG PO SCH (08:28)
[2017-01-13] MEDS: [UNRECOGNIZED DRUG - OTHER] EYEBOTH SCH (08:29)
[2017-01-13] MEDS: Multivitamins with Iron/Calcium/Folic Acid/Minerals Tab PO SCH (08:29)
[2017-01-13 08:40] VITALS: BP 114/62
--- NOTE | 2017-01-13 09:57 | PCM.DCSUM1 ---
Discharge Summary - Hospital Course Free Text/Narrative:: This 66 years old white female has metastatic carcinoid tumor with ascites drained earlier and a right pleural effusion on which a thoracentesis was performed last week. She developed a pneumothorax into which a chest tube was placed. After several days the tube was removed with note of a small apical pnemothorax afterwards. She tolerates this and is discharged to home today. She is to follow up with oncology this morning. Brief History: See above narrative. - Discharge Data Discharge Date: 01/13/17 Discharge Disposition: Home, Self-Care 01 Condition: Good - Discharge Diagnosis/Problem(s) (1) Pneumothorax on right SNOMED Code(s): 174685491 ICD Code: J93.9 - PNEUMOTHORAX, UNSPECIFIED Status: Acute Current Visit: Yes - Patient Summary/Data Operative Procedure(s) Performed: See above narrative. A 20 [place] chest tube was used. - Patient Instructions Diet: Usual Diet as Tolerated Activity: As Tolerated Driving, Other: Do not drive while taking narcotic pain medication. Showering/Bathing: May Shower Notify Provider of: Fever, Increased Pain, Swelling and Redness, Drainage, Nausea and/or Vomiting - Discharge Plan Prescriptions/Med Rec: Acetaminophen/HYDROcodone [[place] 325-5 MG] 1 - 2 tab PO Q4H PRN #30 tablet PRN Reason: Pain Home Medications: Home Meds Aspirin 81 mg PO DAILY 10/07/14 [History] Black Cohosh 40 mg PO DAILY 08/10/16 [History] Ibuprofen [Advil] 200 mg PO Q6H PRN 08/10/16 [History] Melatonin 3 mg PO BEDTIME 08/10/16 [History] Multivitamin with Minerals [Multiple Vitamin] 1 tab PO DAILY 08/10/16 [History] Naphazoline HCl/Glycerin [Redness Relief Eye Drops] 1 - 2 drop EYEBOTH DAILY 02/16 [History] [place]-3 Fatty Acids/Fish Oil [Fish Oil 1,200 mg Softgel] 1 each PO DAILY [History] diphenhydrAMINE [Benadryl] 50 mg PO ASDIRECTED 01/01/17 [History] Acetaminophen/HYDROcodone [[place] 325-5 MG] 1 - 2 tab PO Q4H PRN #30 tablet 01/13 [Rx] Patient Handouts: Pneumothorax Referrals: Kev Breaux MD [Physician] - (See me in [facility] next week. ) - Discharge Summary/Plan Comment DC Time >30 min.: Yes Discharge Summary/Plan Comment: See above narrative. I will remove her stitches in the clinic next week. - General Info Admission Dx/Problem (Free Text: Admission Diagnosis/Problem Admission Diagnosis/Problem Pneumothorax on right Functional Status: Reports: Pain Controlled - Review of Systems General: Reports: No Symptoms HEENT: Reports: No Symptoms Pulmonary: Reports: No Symptoms Cardiovascular: Reports: No Symptoms Gastrointestinal: Reports: No Symptoms Genitourinary: Reports: No Symptoms Musculoskeletal: Reports: No Symptoms Skin: Reports: No Symptoms Neurological: Reports: No Symptoms Psychiatric: Reports: No Symptoms - Patient Data Vitals - Most Recent: Last Vital Signs Temp 97.5 F 01/13/17 07:00 Pulse 84 01/13/17 07:00 Resp 16 01/13/17 07:00 BP 114/62 01/13/17 07:00 Pulse Ox 92 L 01/13/17 07:39 Weight - Most Recent: 126 lb 6.397 oz I&O - Last 24 hours: Intake & Output 01/12/17 01/13/17 01/13/17 22:59 06:59 14:59 Intake Total 600 400 Balance 600 400 Med Orders - Current: Current Medications Hydrocodone Bitart/Acetaminophen ([place] 325-5 Mg) 1 - 2 tab PO Q4H PRN PRN Reason: Pain Last Admin: 01/11/17 12:23 Dose: 1 tab Diphenhydramine HCl (Benadryl) 50 mg PO ASDIRECTED PRN PRN Reason: GIVE PRIOR TO CT SCANS Docusate Sodium (Colace) 100 mg PO BID [facility] Last Admin: 01/13/17 08:28 Dose: Not Given Fish Oil (Fish Oil) 1 gm PO DAILY [facility] Last Admin: 01/13/17 08:28 Dose: Not Given Lactated Ringer's (Ringers, Lactated) 1,000 mls @ 25 mls/hr IV ASDIRECTED [facility] Last Admin: 01/08/17 13:30 Dose: 25 mls/hr Melatonin (Melatonin) 3 mg PO BEDTIME [facility] Last Admin: 01/12/17 20:10 Dose: 3 mg Multivitamins/Minerals (Thera M Plus) 1 tab PO DAILY [facility] Last Admin: 01/13/17 08:29 Dose: Not Given Black Cohosh 40 Mg ( (Ptom)) 0 mg PO DAILY [facility] Last Admin: 01/13/17 08:28 Dose: Not Given Redness Relief Eye (Drops (Ptom)) 1 - 2 drop EYEBOTH DAILY [facility] Last Admin: 01/13/17 08:29 Dose: Not Given Ondansetron HCl (Zofran Odt) 4 mg PO Q6H PRN PRN Reason: Nausea able to take PO Discontinued Medications Bacitracin (Bacitracin Oint 1 Gm) Confirm Administered Dose 3 dose .ROUTE .STK- MED ONE Stop: 01/12/17 06:24 Last Admin: 01/12/17 06:28 Dose: 3 dose Bacitracin (Bacitracin Oint 1 Gm) 3 dose TOP ONETIME ONE Stop: 01/12/17 06:28 Last Admin: 01/12/17 06:38 Dose: Not Given Bupivacaine HCl/Epinephrine Bitart (Marcaine 0.5%/Epinephrine 1:200,000) Confirm Administered Dose 50 ml .ROUTE .STK-MED ONE Stop: 01/08/17 13:31 Last Admin: 01/08/17 14:10 Dose: 20 ml Fentanyl (Sublimaze) Confirm Administered Dose 100 mcg .ROUTE .STK-MED ONE Stop: 01/08/17 13:47 Midazolam HCl (Versed 1 Mg/Ml) Confirm Administered Dose 2 mg .ROUTE .STK-MED ONE Stop: 01/08/17 13:48 Propofol (Diprivan 20 Ml) Confirm Administered Dose 200 mg .ROUTE .STK-MED ONE Stop: 01/08/17 13:47 - Exam General: Reports: Alert, Oriented Lungs: Reports: Clear to Auscultation, Normal Respiratory Effort Cardiovascular: Reports: Regular Rate, Regular Rhythm GI/Abdominal Exam: Normal Bowel Sounds, Soft, Non-Tender, No Organomegaly, No Distention, No Abnormal Bruit, No Mass, Pelvis Stable Back Exam: Reports: Normal Inspection, Full Range of Motion Extremities: Normal Inspection, Normal Range of Motion, Non-Tender, No Pedal Edema, Normal Capillary Refill Skin: Reports: Warm, Dry, Intact Wound/Incisions: Reports: Healing Well Neurological: Reports: No New Focal Deficit Psy/Mental Status: Reports: Alert, Normal Affect, Normal Mood *Q Meaningful Use (DIS) - VTE *Q VTE Criteria *Q: - Stroke *Q Stroke Criteria *Q: - AMI *Q AMI Criteria *Q:
== END 2017-01-13 09:45 | disposition home or self-care (01) | DRG 200 ==
LOC: JP.ACU 10:58 → JP.SDS 10:58 → JP.ACU 12:39 → JP.ICU 15:30 → JP.MS 01-10 14:10
PROVIDERS: ADMIT Surgery; ATTEND Surgery
PROC: 0W993ZX Drainage of Right Pleural Cavity, Percutaneous Approach, Diagnostic (ICD-10-PCS; principal; 2017-01-08)
PROC: 0W9930Z Drainage of Right Pleural Cavity with Drainage Device, Percutaneous Approach (ICD-10-PCS; 2017-01-08)
DX: J93.9 Pneumothorax, unspecified (principal); J91.8 Pleural effusion in other conditions classified elsewhere; E34.0 Carcinoid syndrome; F17.210 Nicotine dependence, cigarettes, uncomplicated; Z85.3 Personal history of malignant neoplasm of breast; Z85.05 Personal history of malignant neoplasm of liver; M54.9 Dorsalgia, unspecified; G89.29 Other chronic pain; H54.7 Unspecified visual loss; M19.90 Unspecified osteoarthritis, unspecified site; Z91.041 Radiographic dye allergy status; Z79.82 Long term (current) use of aspirin
CPT/HCPCS: 32555; 71010; 71010-26; 88112; 88305; 88341; 88342; 94762; A9270-GY; J2250; J2704; J3010; J7120

== ENCOUNTER 2017-02-25 10:22 | Inpatient (IN) | payer MEDICARE, OTHER ==
[2017-02-25] MEDS ORDERED: ceFAZolin 1 GM Vial ONE (10:46)
[2017-02-25] MEDS: Dextrose 5%-Lactated Ringers 1,000 ML IV SCH (11:17)
[2017-02-25] MEDS ORDERED: Ondansetron 4 MG/2 ML SDV ONE (11:56)
[2017-02-25] MEDS ORDERED: Succinylcholine 200 MG/10 ML MDV ONE (11:56)
[2017-02-25] MEDS ORDERED: Neostigmine Methylsulfate 1 MG/ML 5 ML Syringe ONE (11:56)
[2017-02-25] MEDS ORDERED: Glycopyrrolate 0.2 MG/ML 5 ML MDV ONE (11:56)
[2017-02-25] MEDS ORDERED: Propofol 200 MG/20 ML SDV ONE (11:56)
[2017-02-25] MEDS ORDERED: Rocuronium 50 MG/5 ML Vial ONE (11:56)
[2017-02-25] MEDS ORDERED: Dexamethasone 4 MG/ML SDV ONE (11:56)
[2017-02-25] MEDS ORDERED: Linezolid 600 MG in Premix Bag 1 BAG IV ONE (12:30)
[2017-02-25] MEDS ORDERED: HYDROmorphone/Normal Saline 15 MG/30 ML PCA IV PRN (12:50)
[2017-02-25] MEDS ORDERED: Naloxone 0.4 MG/ML SDV IVPUSH PRN (12:50)
[2017-02-25] MEDS ORDERED: Naloxone 0.4 MG/ML SDV IV PRN (12:54)
[2017-02-25] MEDS ORDERED: Linezolid 200 MG/100 ML Bag IV ONE (17:55)
[2017-02-25] MEDS ORDERED: Lactated Ringers 1,000 ML ONE (18:29)
[2017-02-25] MEDS ORDERED: hydrOXYzine HCl 25 MG Tab PO PRN (20:12)
[2017-02-25] MEDS ORDERED: hydrOXYzine HCl 100 MG/2 ML SDV IM PRN (20:13)
[2017-02-25] MEDS ORDERED: Ondansetron 4 MG/2 ML SDV IVPUSH PRN (20:14)
[2017-02-25] MEDS ORDERED: Melatonin 3 MG Tab PO PRN (20:19)
[2017-02-25] MEDS ORDERED: Furosemide 20 MG/2 ML VIAL IVPUSH ONE (22:45)
[2017-02-26] MEDS: Dextrose 5%-Lactated Ringers 1,000 ML IV SCH ×2 (01:45→16:02)
[2017-02-26] MEDS ORDERED: Furosemide 20 MG/2 ML VIAL IVPUSH ONE (02:00)
[2017-02-26] MEDS: Linezolid 600 MG in Premix Bag 1 BAG IV SCH ×2 (06:36→18:06)
[2017-02-26] MEDS ORDERED: Magnesium Sulfate/Water 2 GM in Premix Bag 1 BAG IV SCH (07:45)
[2017-02-26] MEDS ORDERED: Furosemide 40 MG/4 ML VIAL IVPUSH SCH (08:00)
[2017-02-26] MEDS ORDERED: NAPHAZOLINE EYEBOTH SCH (09:00)
[2017-02-26] MEDS ORDERED: BLACK COHOSH 40 MG PO SCH (09:00)
[2017-02-26] MEDS ORDERED: Non-Formulary Medication 1 Each (Aspirin [Aspirin] 81 MG) PO SCH (09:00)
[2017-02-26] MEDS ORDERED: GLYCERIN EYEBOTH SCH (09:00)
[2017-02-26] MEDS ORDERED: BLACK COHASH PO SCH (09:00)
[2017-02-26] MEDS ORDERED: AFINITOR PO SCH (09:00)
[2017-02-26] MEDS ORDERED: [UNRECOGNIZED DRUG - OTHER] EYEBOTH SCH (09:00)
[2017-02-26] MEDS ORDERED: Non-Formulary Medication 1 Each (Multivitamin With Minerals [Multiple Vitamin] 1 TAB) PO SCH (09:00)
[2017-02-26] MEDS ORDERED: EVEROLIMUS 10 MG PO SCH (09:00)
[2017-02-26] MEDS ORDERED: [UNRECOGNIZED DRUG - OTHER] EYEBOTH SCH (09:00)
[2017-02-26] MEDS: Multivitamins with Iron/Calcium/Folic Acid/Minerals Tab PO SCH (09:20)
[2017-02-26] MEDS: Aspirin 81 MG Tab.EC PO SCH (09:20)
[2017-02-26] MEDS: Furosemide 20 MG/2 ML VIAL IVPUSH SCH ×2 (09:22→21:22)
[2017-02-26] MEDS ORDERED: DEXAMETHASONE SSPIT SCH (10:00)
[2017-02-26] MEDS ORDERED: DEXAMETHASONE PO SCH (10:00)
[2017-02-26] MEDS ORDERED: AFINITOR 10 MG PO SCH (10:30)
--- NOTE | 2017-02-26 11:06 | PN ---
DATE OF SERVICE: 02/26/2017 SUBJECTIVE: She is postop day one. She states her pain is controlled. Vital signs have been stable. Labs this morning, white count 3,900, platelet count of 76,000, INR is 1.06, PT 11.4, magnesium is 1.6. OBJECTIVE: GENERAL: Anna Chen is a pleasant 66-year-old female. VITAL SIGNS: TPR is 96.7, 70, 16, O2 sats by pulse oximetry is 94%. HEENT: Negative. NECK: Supple. HEART: Regular rate and rhythm. LUNGS: Clear. ABDOMEN: Dressings dry and intact. [place] shunt was pushed by Jesu Laurent M.D. EXTREMITIES: Reveal trace peripheral edema. SCDs are on. 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 PLAN: 1. Discontinue Loving catheter in a.m. 02/27/2017 at 0500 hours. 2. Check CBC, CMP, PT, and PTT. 3. Magnesium 2 g IV x72 hours. 4. Lasix 10 mg IV at 8:00 a.m. and 8:00 p.m. 5. Regular diet. 6. To bring in home medications and to start oncology medications that she has been taking at home. Her home medications were restarted, black cohosh, Afinitor, naphazoline HCL/glycerin eyedrops, omega-3 fatty acid, fish oil, and dexamethasone. 7. Cristopher shunt management, to push 5-6 times q.i.d. If platelets decrease to 40,000 or below, to consult Internal Medicine/hospitalist. We will evaluate p.r.n. or in a.m. Paris Albarran PA-C /[id number]
[2017-02-26] MEDS: DEXAMETHASONE 0.5 MG/5 ML PO SCH ×3 (11:21→21:22)
[2017-02-26] MEDS: Fish Oil/Omega-3 Fatty Acids 1 Gm Cap PO SCH (11:23)
--- NOTE | 2017-02-26 19:48 | OR ---
DATE OF PROCEDURE: 02/25/2017 PREOPERATIVE DIAGNOSIS: Rapidly recurring tense malignant ascites. POSTOPERATIVE DIAGNOSIS: Rapidly recurring tense malignant ascites. OPERATIVE PROCEDURE: Insertion of [place] peritoneovenous shunt ([id number]). ANESTHESIA: General. INDICATION FOR PROCEDURE: This is a 66-year-old with advanced neuroendocrine tumor with a very rapidly recurring tense ascites. The patient had several liters taken out last week and at that time the abdomen was quite decompressed. Within 5 days, she was already tensely distended again. A discussion was held with the patient regarding options for management of this, which would include recurrent paracentesis, placement of an externally drainable intraperitoneal catheter versus peritoneovenous shunt. After discussion, we decided to proceed with a peritoneovenous shunt. This would be something that would be less prone to infection or injury to the bowel and not be associated with the nutritional issues as well as periodically symptomatic tense ascites. The potential risks including bleeding, problems with fluid overload, the shunt becoming occluded along with the remote possibility of cardiopulmonary, septic, or hemorrhagic complications leading to were all reviewed with the patient and her , and they wished to proceed. DETAILS OF PROCEDURE: The patient was taken to the operating room and after general endotracheal anesthesia was induced, a Loving catheter was inserted and the abdomen was prepped and draped. Initially, using an ultrasound the left jugular vein in the central location was cannulated and guidewire manipulated from there and into the superior vena cava. A transverse incision measuring around 4 cm was made in the anterior axillary line along the costal margin. This was carried down to the muscular fascia, which was incised. Ultrasound was then used to confirm there were no underlying adhesions in that area. Then, a needle was passed, the ascitic fluid was aspirated, and the guidewire was then manipulated. This was curved back up toward the spleen and left lobe of liver, which would likely be a satisfactory location. An introducer was then placed over the guidewire and the abdominal portion of the [place] shunt was then placed without difficulty. At that point, 2 L of peritoneal fluid was removed and around 500 mL of saline reinjected. This process should likely reduce the rate of problems with acute fluid overload or DIC in the early postoperative period. Using the tunneler, the venous end of the Cristopher shunt was then pulled up. A pocket for the pump had been bluntly created. The tunneler was then brought out through a small stab wound at the jugular site, which allowed the venous portion of the shunt to be pulled up into that incision. Using fluoroscopic surveillance, the catheter was cut such that the tip would lie in the superior vena cavoatrial junction, and over the introducer and peel-away catheter, that was easily placed. At that point, good pump function was confirmed and both locations appeared to be satisfactory. There was notably very good flow through the shunt prior to its being inserted into the vein. The abdominal incision was then carefully closed with some 2-0 Vicryl stitch to occlude as much as possible any leakage of peritoneal fluid around the point where the catheter entered. Then, this was closed with some 4-0 Vicryl stitch deep and then a running locked 5- 0 Prolene stitch. The jugular incision was then closed with some 4-0 Vicryl subcuticular stitch and dressing was applied. The pump site was marked for postoperative identification. The patient was taken to the recovery room in a satisfactory condition. In the recovery room, a few hours later, we will give her some IV Lasix to minimize chances of issues of fluid overload. There were no evident complications. The patient was taken to the recovery room in a satisfactory condition. Jesu Laurent MD /[id number]
[2017-02-26] MEDS: AFINITOR 10 MG PO SCH (19:59)
[2017-02-26] MEDS: Melatonin 3 MG Tab PO SCH (21:22)
[2017-02-27] MEDS: DEXAMETHASONE 0.5 MG/5 ML PO SCH ×4 (05:50→20:59)
[2017-02-27] MEDS: Dextrose 5%-Lactated Ringers 1,000 ML IV SCH (06:39)
[2017-02-27] MEDS: Linezolid 600 MG in Premix Bag 1 BAG IV SCH (07:14)
[2017-02-27] MEDS: Fish Oil/Omega-3 Fatty Acids 1 Gm Cap PO SCH (09:31)
[2017-02-27] MEDS: Multivitamins with Iron/Calcium/Folic Acid/Minerals Tab PO SCH (09:31)
[2017-02-27] MEDS: Aspirin 81 MG Tab.EC PO SCH (09:31)
[2017-02-27] MEDS: traMADol 50 MG Tab PO PRN ×3 (09:52→23:32)
[2017-02-27] MEDS: Potassium Phosphates 20 MMOLE in Sodium Chloride 0.9% 250 ML IV SCH ×3 (09:53→15:54)
[2017-02-27] MEDS: AFINITOR 10 MG PO SCH (20:01)
[2017-02-27] MEDS: Melatonin 3 MG Tab PO SCH (20:59)
[2017-02-27] MEDS ORDERED: Docusate Sodium 100 MG Cap PO PRN (23:42)
[2017-02-28] MEDS: traMADol 50 MG Tab PO PRN (05:17)
[2017-02-28] MEDS: DEXAMETHASONE 0.5 MG/5 ML PO SCH ×2 (05:18→10:03)
[2017-02-28 07:44] VITALS: BP 117/63
[2017-02-28] MEDS ORDERED: Phosphorus #1 250 MG Tab PO SCH (09:00)
[2017-02-28] MEDS: Fish Oil/Omega-3 Fatty Acids 1 Gm Cap PO SCH (09:03)
[2017-02-28] MEDS: Multivitamins with Iron/Calcium/Folic Acid/Minerals Tab PO SCH (09:03)
[2017-02-28] MEDS: Aspirin 81 MG Tab.EC PO SCH (09:04)
--- NOTE | 2017-02-28 10:49 | PCM.SN ---
- Free Text/Narrative Note: Platelets low and trending down. No bleeding. Is on Everolimus and was on Linezolid. Likely combo effect. Pt stable and going home today. Recommend outpatient follow up for repeat levels in 2-3 days or if bleeding develops. Dony Hawkins MD
--- NOTE | 2017-02-28 10:55 | DISCH ---
ADMISSION DIAGNOSES: 1. Malignant ascites, rapidly reoccurring tense malignant ascites. 2. Carcinoid syndrome. 3. History of breast cancer. 4. Metastatic malignant neuroendocrine tumor to liver. 5. 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 6. 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 DISCHARGE DIAGNOSIS: 1. Insertion of [place], peritoneovenous shunt for rapidly recurring tense malignant ascites. HISTORY: Anna is a 67-year-old female with advanced neuroendocrine tumor with very rapidly reoccurring tense ascites. She had several liters taken out last week and at that time, the abdomen was quite decompressed. Within 5 days, she was intensely distended again. After preoperative evaluation and discussion of possible risks and possible complications, she wished to proceed with surgical procedure. HOSPITAL COURSE: Anna Chen had her surgery on 02/25/2017. She had no operative complications. On postop day #1, her was taught how to use her [place] shunt. Loving catheter was discontinued. Labs were drawn and reviewed. She was started on magnesium and given Lasix 10 mg IV. On postop day #2, her labs were evaluated. Her hemoglobin was 10.8, INR was 1.35, potassium was 3, and her platelets were 49. She was given K-Phos 60 millimoles and oral potassium. On postop day #3, she was ready to be discharged to home. Lab values did reveal platelets 36. Prior to discharge, she will be getting consultation with hospitalist, Dony Hawkins MD. She is feeling good. Her phosphorus is 2.3, so she will go home with some phosphorus. Anna and her both know how to flush the [place] shunt and they will be doing it as directed 5 to 6 times four times a day. OBJECTIVE: GENERAL: Anna Cehn is a pleasant 67-year-old female whose birthday is today. She is alert, and oriented, in no acute distress. VITAL SIGNS: Height is 5 feet 1.81 inches. Weight is 158 pounds. TPR is 97.3, 77, 18, and blood pressure 117/63. Weight is up from admission, she was 149.5 pounds on admission. TPR was 98, 69, 16, and blood pressure 120/57. HEENT: Negative. NECK: Supple. HEART: Regular rate and rhythm. LUNGS: Clear. ABDOMEN: Distended, but soft. EXTREMITIES: Reveal 2+ peripheral edema. Her legs actually look good and better than they have been. Sutures intact. [place] shunt was pushed 6 times. She tolerates that well. DISPOSITION: Discharged to home. CONDITION: Stable and improving. FOLLOWUP APPOINTMENT: Paris Albarran PA-C, on 03/05/2017 at 10 a.m. HOME MEDICATIONS: 1. Aspirin 81 mg daily. 2. Colace 100 mg oral twice daily p.r.n. 3. As needed stool softener 3. 4. Tramadol 50 mg oral q.4 hours p.r.n. pain. 5. She is to resume her black cohosh 40 mg daily. 6. Dexamethasone 10 mL swish and spit 4 times a day. 7. Everolimus Afinitor 10 mg oral daily. 8. Ibuprofen 200 mg oral every 6 hours p.r.n. pain. 9. Melatonin 3 mg at bedtime. 10.Multivitamin 1 tablet oral daily. 11.Naphazoline HCL glycerin which is redness relief eye drops 1-2 drops both eyes daily. 12.[place]-3 fish oil 1200 mg soft gel 1 daily. DISCHARGE DIET: Usual diet as tolerated. Drink 8 to 10 glasses of water a day. ACTIVITY: As tolerated. No lifting greater than 10 pounds for 2 weeks[address], do not drive on pain medication. May shower. DISCHARGE INSTRUCTIONS: Notify provider of fever, increased pain, nausea, or vomiting. Keep site clean and dry. Special instruction, push [place] shunt 6 to 8 times four times a day. Use incentive spirometer 10 times every hour while awake and to [place] wrap legs as p.r.n. peripheral swelling.
--- NOTE | 2017-03-01 08:23 | PN ---
DATE OF SERVICE: 02/27/2017 SUBJECTIVE: Anna is postop day 2. Her PT this morning was 14.6 and INR was 1.35, potassium was 3. She reports her pain is controlled, has no questions or concerns. Her is learning to pump the [place] shunt. REVIEW OF SYSTEMS: Remainder of review of systems is negative for any pertinent positives or negatives. OBJECTIVE: GENERAL: Anna Chen is a pleasant 66-year-old female. She is alert and orientated. VITAL SIGNS: TPR is 97.1, 70, 16, and blood pressure 113/45. HEENT: Negative. NECK: Supple. HEART: Regular rate and rhythm. LUNGS: Clear. ABDOMEN: Negative. Shunt is palpated. Incisions look good. EXTREMITIES: Without peripheral edema. ASSESSMENT: Insertion of [place] peritoneovenous shunt for rapidly recurring tense malignant ascites. Date of surgery 02/25/2017. PLAN: 1. K-Phos 60 millimoles IV, KCl 20 mEq p.o. today one time, tramadol 50 mg q.4 hours p.r.n. pain. 2. Discontinue [place] and continuous pulse ox. 3. Check CBC, CMP, phos, INR and PT in a.m. 4. Continue to pump Cristopher shunt 6 to 8 times 4 times a day. 5. Good pulmonary toilet encouraged. 6. We will evaluate p.r.n. or in a.m. Paris Albarran PA-C /[id number]
== END 2017-02-28 12:21 | disposition home or self-care (01) | DRG 982 ==
LOC: JP.SDS 10:22 → JP.MS 10:22 → JP.2SS 10:22 → EDSTATUS 12:00
PROVIDERS: ADMIT Surgery; ATTEND Surgery
PROC: 0W1G4JY Bypass Peritoneal Cavity to Lower Vein with Synthetic Substitute, Percutaneous Endoscopic Approach (ICD-10-PCS; principal; 2017-02-25)
DX: E34.0 Carcinoid syndrome (principal); R18.0 Malignant ascites; C7B.8 Other secondary neuroendocrine tumors; C7A.8 Other malignant neuroendocrine tumors; Z85.3 Personal history of malignant neoplasm of breast; Z91.041 Radiographic dye allergy status; M19.079 Primary osteoarthritis, unspecified ankle and foot; Z79.82 Long term (current) use of aspirin
CPT/HCPCS: 36415; 80053; 83735; 83880; 84100; 85027; 85610; 85730; 94762; A9270-GY; J0330; J0690; J1100; J1170; J1940; J2020; J2405; J2704; J2710; J3010; J3475; J3490; J7042; J7050; J7120

== ENCOUNTER 2017-03-15 14:27 | Emergency (ER) | payer MEDICARE, OTHER ==
[2017-03-15 14:46] VITALS: BP 123/52
--- NOTE | 2017-03-15 15:31 | EDM.PDOC ---
ED HPI GENERAL MEDICAL PROBLEM - General Chief Complaint: General Stated Complaint: TAMIR SHUNT LEAKING Time Seen by Provider: 03/15/17 15:31 Source of Information: Reports: Patient History Limitations: Reports: No Limitations - History of Present Illness INITIAL COMMENTS - FREE TEXT/NARRATIVE: pt arrived with a history of a tamir shunt that was recently placed and now it is leaking alot. She also has slight burning when she passes her urine. Onset: Other ( started during the nite. ) Duration: Hour(s): Location: Reports: Abdomen Associated Symptoms: Reports: No Other Symptoms - Related Data Allergies Allergy/AdvReac Type Severity Reaction Status Date / Time adhesive tape Allergy Rash Verified 02/25/17 10:53 Iodinated Contrast- Oral and Allergy Hives Verified 02/25/17 10:53 IV Dye [Iodinated Contrast Media - IV Dye] Home Meds: Home Meds Black Cohosh 40 mg PO DAILY 08/10/16 [History] Ibuprofen [Advil] 200 mg PO Q6H PRN 08/10/16 [History] Melatonin 3 mg PO BEDTIME 08/10/16 [History] Multivitamin with Minerals [Multiple Vitamin] 1 tab PO DAILY 08/10/16 [History] Naphazoline HCl/Glycerin [Redness Relief Eye Drops] 1 - 2 drop EYEBOTH DAILY 02/16 [History] [place]-3 Fatty Acids/Fish Oil [Fish Oil 1,200 mg Softgel] 1 each PO DAILY [History] Dexamethasone 10 ml SSPIT QID 02/18/17 [History] Everolimus [Afinitor] 10 mg PO BEDTIME 02/18/17 [History] Phosphorus #1 [Neutra-Phos] 250 mg PO BID #60 tablet 02/28/17 [Rx] traMADol [Ultram] 50 mg PO Q4H PRN #30 tablet 02/28/17 [Rx] Cefuroxime [Ceftin] 1 tab PO BID 03/15/17 [History] Magnesium 1 tab PO DAILY 03/15/17 [History] Past Medical History HEENT History: Reports: Impaired Vision Respiratory History: Reports: Bronchitis, Recurrent, Other (See Below) Other Respiratory History: Pleural effusion Gastrointestinal History: Reports: Chronic Diarrhea, Colon Polyp, Other (See Below) Other Gastrointestinal History: malignant ascites Genitourinary History: Reports: None FLY WINDER History: Reports: Musculoskeletal History: Reports: Back Pain, Chronic, Osteoarthritis Neurological History: Reports: Concussion, Head Trauma Oncologic (Cancer) History: Reports: Basal Cell Carcinoma, Breast, Liver, Other (See Below) Other Oncologic History: neuroendocrine carcinoma of small bowel, metastatic malignant neoroendocrine tumor to liver - Infectious Disease History Infectious Disease History: Reports: Chicken Pox, Measles, Mumps - Past Surgical History HEENT Surgical History: Reports: None Respiratory Surgical History: Reports: Thoracentesis, Other (See Below) Other Respiratory Surgeries/Procedures: chest tube GI Surgical History: Reports: Abdominal paracentesis, Appendectomy, Cholecystectomy, Colonoscopy, EGD, Other (See Below) Other GI Surgeries/Procedures: Colon resection, removed 2 polyps precancerous Female Surgical History: Reports: Breast Biopsy, Tubal Ligation Neurological Surgical History: Reports: Lumbar Spine Musculoskeletal Surgical History: Reports: None Oncologic Surgical History: Reports: Biopsy of Breast, Lumpectomy Dermatological Surgical History: Reports: Skin Biopsy Social & Family History - Family History Family Medical History: Noncontributory - Tobacco Use Smoking Status *Q: Current Every Day Smoker Years of Tobacco use: 46 Packs/Tins Daily: 0.5 Used Tobacco, but Quit: No Month Tobacco Last Used: Septemeber Second Hand Smoke Exposure: No - Caffeine Use Caffeine Use: Reports: Coffee - Alcohol Use Days Per Week of Alcohol Use: 1 Number of Drinks Per Day: 1 Total Drinks Per Week: 1 Date of Last Drink: 03/13/17 Time of Last Drink: 22:00 - Recreational Drug Use Recreational Drug Use: No ED ROS GENERAL - Review of Systems Review Of Systems: See Below Constitutional: Reports: No Symptoms HEENT: Reports: No Symptoms Respiratory: Reports: No Symptoms Cardiovascular: Reports: No Symptoms Endocrine: Reports: No Symptoms GI/Abdominal: Reports: Other (leaking tamir shunt on the left abdoman. ) : Reports: Other ( irritation in the urethra. ) Musculoskeletal: Reports: No Symptoms Skin: Reports: No Symptoms ED EXAM, GENERAL - Physical Exam Exam: See Below Free Text/Narrative:: pt arrived wth alot of leakage from the [place] Shunt. She states her bed was saturated. Her wound has opened slightly over the shunt. She also has irritation when she voids. She did have a quinonez in at the time of surgery. Exam Limited By: No Limitations General Appearance: Alert, Anxious, Mild Distress Ears: Normal TMs Nose: Normal Inspection Throat/Mouth: Normal Inspection Head: Atraumatic Neck: Normal Inspection Respiratory/Chest: No Respiratory Distress Cardiovascular: Regular Rate, Rhythm GI/Abdominal: Other (mild suprapupic tenderness. She is definitely leaking from the shunt site. ) (Female) Exam: Deferred Rectal (Female) Exam: Deferred Back Exam: Normal Inspection Extremities: Pedal Edema Neurological: Alert, Oriented, Normal Cognition Psychiatric: Normal Affect Course - Vital Signs Last Recorded V/S: Last Vital Signs Temp 36.3 C 03/15/17 15:09 Pulse 72 03/15/17 15:09 Resp 14 03/15/17 15:09 BP 123/52 L 03/15/17 15:09 Pulse Ox 96 03/15/17 15:09 - Orders/Labs/Meds Labs: Laboratory Tests 03/15/17 Range/Units 15:37 Urine Color Yellow Urine Appearance Slightly cloudy Urine pH 6.0 (4.5-8.0) Ur Specific [place] 1.015 (1.008-1.030) Urine Protein Trace (NEGATIVE) mg/dL Urine Glucose (UA) Normal (NEGATIVE) mg/dL Urine Ketones Negative (NEGATIVE) mg/dL Urine Occult Blood Moderate (NEGATIVE) Urine Nitrite Negative (NEGATIVE) Urine Bilirubin Small (NEGATIVE) Urine Urobilinogen 1 (NORMAL) mg/dL Ur Leukocyte Esterase Small (NEGATIVE) Urine RBC 5-10 H (0-5) Urine WBC 0-5 (0-5) Ur Epithelial Cells Many Amorphous Sediment Not seen Urine Bacteria Not seen Urine Mucus Moderate Meds: Medications Discontinued Medications Generic Name Dose Route Start Last Admin Trade Name Moon PRN Reason Stop Dose Admin Lidocaine HCl 5 ml 03/15/17 16:16 Xylocaine-Mpf 1% INJECT 03/15/17 16:17 ONETIME ONE - Re-Assessments/Exams Free Text/Narrative Re-Assessment/Exam: 03/15/17 16:40 Pt was seen by Dr Laurent and he placed some sutures to prevent the leakage. He will follow her next week. He does want her on cipro. Her urine has some rbcs but does not look infected. Departure - Departure Time of Disposition: 16:42 Disposition: Home, Self-Care 01 Condition: Fair Clinical Impression: Malfunction of [place] shunt - Discharge Information Referrals: Thom Banuelos MD [Primary Care Provider] - Forms: ED Department Discharge Care Plan Goals: appt with Dr Laurent next week, cipro 500mg bid for 1 week.
--- NOTE | 2017-03-22 11:12 | PN ---
DATE OF SERVICE: 03/15/2017 This is a 67-year-old presenting with a small pinhole leak over the abdominal incision used for recent peritoneovenous shunt. Mucosally, there is no infection. She lay on her left side for the first time postoperatively and otherwise, other than some leakage of the fluid, is feeling satisfactory. The pump continues to function satisfactorily. She recently had been started on some oral cephalosporin for another issue, and after examination of that area, a decision was made to simply stitch that area. The area was then prepped and draped and then was anesthetized with 1% lidocaine, and this was then sutured with a running locked 5-0 Prolene stitch, which appeared to satisfactorily occlude the area and then covered with Dermabond as well. We will see her back on Wednesday. She is instructed that, if it begins leaking again in the interim or thereafter, she should contact me at that time. We will add Cipro 500 mg b.i.d. x1 week to the equation to give her some additional Staph coverage. Jesu Laurent MD /[id number]
== END 2017-03-15 17:38 | disposition home or self-care (01) ==
LOC: JP.ED 14:27
DX: T85.598A Other mechanical complication of other gastrointestinal prosthetic devices, implants and grafts, initial encounter (principal); F17.210 Nicotine dependence, cigarettes, uncomplicated; Z98.890 Other specified postprocedural states; Z79.899 Other long term (current) drug therapy; Z91.048 Other nonmedicinal substance allergy status; Z91.041 Radiographic dye allergy status
CPT/HCPCS: 81001; 87086; 99283; 99284